=== PATIENT | female | born 1940 | race Caucasian/White ===

== ENCOUNTER → 2016-07-21 | Outpatient (CLI) | payer OTHER ==
--- NOTE | ~2016-07-21 | MY11 ---
[facility] A Service of [facility] RADIOLOGY TEXT RESULTS PATIENT: JULIA FARRIS LOCATION: [facility] : 44 UNIT #: [id number] AGE: [address]: JARRETT JEFFRIES MD SEX: F ORDER DR: [id number] [facility] [address] [facility] [address]. [place], [place] [address] [id number] O MR#: [id number] #: [id number] NAME: JULIA FARRIS : 1940 SEX: F STUDY DATE/TIME: 07/21/2016 12:02 UNIT: [facility] ROOM: STUDY DESCRIPTION: MY Mammogram Screening Dig Simone Attending Physician: Jarrett Jeffries M.D. Ordering Physician: Jarrett Jeffries M.D. Primary Care Physician: Jarrett Jeffries M.D. MEDICAL IMAGING REPORT This report is preliminary unless electronic signature is present EXAM Digital screening mammogram 07/21/2016. HISTORY 75-year-old woman, positive family history, sister age 57. Annual screen. COMPARISON STUDIES Comparison mammograms date to 01/14/2010 with most recent 07/19/2015 FINDINGS Digital imaging of each breast was completed utilizing screening protocol. Review includes FDA-approved CAD device. Breast parenchyma is partially fatty replaced and mildly heterogeneous. Small subcentimeter nodule is stable inner hemisphere right breast anterior third. There is no interval occurring mass. I see no suspicious microcalcifications and no architectural deformity. IMPRESSION Stable benign mammogram. Annual screening recommended. BIRADS II Patients over the age of 40 are entered into a reminder system with target due date for the next mammogram. A result letter will also be sent to the patient. BIRADS: 2 - BENIGN FINDING Dictated by... Mk Crabtree M.D. THIS IS AN ELECTRONICALLY VERIFIED REPORT Mk Crabtree M.D. at 07/24/2016 8:09 AM TOÑITO/jannie [facility] A Service of [facility] RADIOLOGY TEXT RESULTS PATIENT: JULIA FARRIS LOCATION: [facility] ACC #: [id number] : 44 UNIT #: [id number] AGE: [address]: JARRETT JEFFRIES MD SEX: F ORDER DR: TD: 07/21/2016 15:41 JOB #: [id number] MEDICAL IMAGING REPORT Page 1 of 1 COPY
== END | disposition home or self-care (01) ==
LOC: CWCC 11:47
DX: Z12.31 Encounter for screening mammogram for malignant neoplasm of breast (principal); Z80.3 Family history of malignant neoplasm of breast
CPT/HCPCS: G0202